=== PATIENT | female | born 1985 | race African-American/Black ===

== ENCOUNTER 2023-12-30 20:13 | Emergency (ER) | payer SELFPAY ==
[2023-12-30 20:15] VITALS: BP 134/92; PULSE 88; RESP 15; TEMP 36.6; O2SAT 100
--- NOTE | 2023-12-30 21:16 | ED.DENTAL ---
HPI - Dental/Oral General Chief complaint: Dental/Oral Stated complaint: tooth ache Time Seen by Provider: 12/30/23 20:58 History of Present Illness HPI Narrative: 38-year-old female presenting with dental pain. States that for the last week or so she has had severe left upper molar pain that radiates into her left ear. States that she has called several dentists but they were unable to get her in for several months. States that it feels like 1 of her left upper molars is broken and sharp. States that she has been using ibuprofen with adequate but temporary pain control. Denies significant swelling. No drainage. No difficulty swallowing or breathing. No further complaints. Related Data Allergies Allergy/AdvReac Type Severity Reaction Status Date / Time latex Allergy Severe ITCHING Verified 12/30/23 20:18 ondansetron Allergy Intermediate NAUSEA Verified 12/30/23 20:18 ,DIZZINESS ampicillin Allergy Mild Itching Verified 12/30/23 20:18 Review of Systems Review of Systems: All systems reviewed & are unremarkable except as noted in HPI and below Exam Narrative: GENERAL: Nontoxic, no acute distress, pleasant cooperative HEAD: Normocephalic, atraumatic. EYES: PERRLA and EOMI. ENT: tooth #15 is fractured with a large central cavity, tender with palpation; no abscess appreciated; TMs normal NECK: Supple. CHEST: No respiratory distress. HEART: Regular rate and rhythm EXTREMITIES: Normal range of motion. SKIN: Warm, dry, no rash. NEURO: Alert and oriented x3. PSYCH: Normal mood and affect. Course Vital Signs Vital signs: Vital Signs Temperature 97.8 F 12/30/23 20:15 Pulse Rate 88 12/30/23 20:15 Respiratory Rate 15 12/30/23 20:15 Blood Pressure 134/92 H 12/30/23 20:15 Pulse Oximetry 100 12/30/23 20:15 Oxygen Delivery Room Air 12/30/23 20:15 Temperature 97.8 F 12/30/23 20:15 Pulse Rate 88 12/30/23 20:15 Respiratory Rate 15 12/30/23 20:15 Blood Pressure 134/92 H 12/30/23 20:15 Pulse Oximetry 100 12/30/23 20:15 Oxygen Delivery Room Air 12/30/23 20:15 MDM - Dental/Oral MDM Narrative Medical decision making narrative: 38-year-old female presenting with dental and ear pain. Vitals within normal limits. Exam remarkable for the above. Appears tooth 15 is the culprit - it is fractured d/t a large cavity. I do not appreciate an abscess. Her left ear appears normal. She is allergic to penicillins. Will start her on clindamycin. She has been taking ibuprofen with adequate relief. Advise she continue doing this as well as follow-up closely with Dentistry. Advised that she call [facility] to see if they can fit her in more quickly. Appropriate return precautions given. Patient is agreeable with this plan. Discharged in stable condition. Differential Diagnosis Differential diagnosis: Likely dental caries, toothache, dental abscess and fracture of tooth Medical Records Attestation: I reviewed the patient's medical records. Critical Care Time Critical Care Time Critical Care Time: No Discharge Plan Discharge Clinical Impression: Fracture of tooth, Toothache Patient Disposition: Home, Self-Care Condition: Stable Instructions: Antibiotic Form, Toothache (ED) Additional Instructions: Please complete the antibiotics as prescribed. You may continue using your ibuprofen and you may also supplement with Tylenol. Please follow-up closely with Dentistry. We recommend calling the dental school at [facility]. They can often get patients in more quickly. If your symptoms worsen or other concerning symptoms arise, please return to the ER. Prescriptions: New clindamycin HCl 150 mg capsule 150 mg PO Q8H Qty: 56 0RF Rx Instructions: Please take 450mg three times per day for 7 days. Follow-up/Referrals: PHYSICIAN,[facility] D[facility]IST[facility] [Primary Care Provider] - Stand Alone Forms: Work/School Release IP
[2023-12-30] MEDS: CLINDAMYCIN HCL 150 MG CAP 450 MG PO (21:36)
[2023-12-30 21:43] VITALS: BP 128/72; PULSE 64; RESP 18; TEMP 36.8; O2SAT 99
== END 2023-12-30 21:45 | disposition home or self-care (01) ==
PROVIDERS: Emergency Provider Emergency Medicine
DX: K03.81 Cracked tooth (principal); K02.9 Dental caries, unspecified
CPT/HCPCS: 99283; A9270